=== PATIENT | female | born 1965 | race Two or more races ===

== ENCOUNTER → 2023-08-26 07:28 | Outpatient (REF) | payer OTHER, SELFPAY | LOC: HWWDC 07:28 | PROVIDERS: ATTENDING PHYSICIAN Nurse Practitioner Family | DX: Z12.31 Encounter for screening mammogram for malignant neoplasm of breast (principal); R94.5 Abnormal results of liver function studies; K82.4 Cholesterolosis of gallbladder | CPT/HCPCS: 76700; 77063; 77067 ==